=== PATIENT | female | born 1995 | race Caucasian/White ===

== ENCOUNTER → 2017-09-12 | Outpatient (CLI) | payer OTHER ==
--- NOTE | 2017-09-12 10:55 | RADIOLOGY REPORT (SQ) ---
EXAM DESCRIPTION: U/S RETROPERITON (RENAL/AORTA) COMPLETED DATE/TIME: 09/12/2017 9:35 am REASON FOR STUDY: I70.1 ATHEROSCLEROSIS OF RENAL ARTERY I70.1 ATHEROSCLEROSIS OF RENAL ARTERY COMPARISON: None. TECHNIQUE: Dynamic and static grayscale images acquired of the kidneys and bladder and recorded on P ACS. Additional selected color Doppler and spectral images recorded. LIMITATIONS: None. FINDINGS: RIGHT KIDNEY: Normal size. Normal echogenicity. No solid or suspicious masses. Dila jered collecting system within 2 standard deviations. No calcifications. LEFT KIDNEY: Normal size. Normal echogenicity. No solid or suspicious masses. Dilated collecti ng system within 2 standard deviations. No calcifications. BLADDER: No masses. OTHER FINDINGS: heart rate 153. IMPRESSION: Dilated collecting system within normal limits for 15 weeks gestation. COMMENT: The degree of renal pelvicalyceal dilation is within normal limits for the patient's curren t stage of . TECHNICAL DOCUMENTATION: JOB ID: [id number] [employer]- All Rights Reserved
--- NOTE | 2017-09-12 16:07 | RADIOLOGY REPORT (SQ) ---
EXAM DESCRIPTION: U/S LTD DUPLEX ART/NADINE FLOW COMPLETED DATE/TIME: 09/12/2017 9:35 am REASON FOR STUDY: I70.1 I70.1 ATHEROSCLEROSIS OF RENAL ARTERY COMPARISON: None. TECHNIQUE: Realtime and static grayscale images acquired. Selected color Doppler, velocities and spe ctral images recorded. LIMITATIONS: None. FINDINGS: RIGHT KIDNEY: RENAL ARTERY VELOCITIES: 1.46 cm/sec. Segmental artery velocity 0.66 cm/sec. RENAL VEIN: Color doppler flow present, patent. VELOCITY RATIO: 1.2. Normal waveforms. KIDNEY: Normal size. No significant pathology. LEFT KIDNEY: RENAL ARTERY VELOCITIES: 1.09 cm/sec. Segmental artery velocity 0.57 cm/sec. RENAL VEIN: Color doppler flow present, patent. VELOCITY RATIO: 1.3. Normal waveforms. KIDNEY: Normal size. No significant pathology. BLADDER: Normal. OTHER: No other significant finding. IMPRESSION: NO DOPPLER EVIDENCE OF HEMODYNAMICALLY SIGNIFICANT RENAL ARTERY STENOSIS. COMMENT: NORMAL RENAL ARTERY/AORTA VELOCITY RATIO IS LESS THAN OR EQUAL TO 3.5. TECHNICAL DOCUMENTATION: JOB ID: [id number]- All Rights Reserved
== END ==
LOC: RAD 08:14
PROVIDERS: ATTEND Obstetrics & Gynecology Obstetrics
DX: I70.1 Atherosclerosis of renal artery (principal)
CPT/HCPCS: 76770; 93976

== ENCOUNTER 2018-02-06 13:01 | Emergency (ER) | payer MEDICAID ==
[2018-02-06] MEDS ORDERED: TETRACAINE HCL 0.5% OPH SOLN 2 ML OU ONE (14:34)
--- NOTE | 2018-02-06 14:38 | ER Document Report ---
ED Eye Complaint - General Chief Complaint: Eye Problem Stated Complaint: LACERATION TO RIGHT EYE Time Seen by Provider: 02/06/18 14:13 Mode of Arrival: Ambulatory Information source: Patient TRAVEL OUTSIDE OF THE [place] IN LAST 30 DAYS: No - HPI Patient complains to provider of: RIGHT EYE PAIN Onset: Yesterday Eye location: Right Injury: No Notes: Patient is here with complaints of right eye pain. The patient is a contact wearer. She states that last night she felt like her eye was getting irritated and she took her contact out. She thinks she may have a scratch on her cornea. States that the pain is progressively gotten worse. She complains of redness to her eye. No drainage but increased hearing. She denies any lost vision. She states that she cannot determine if her vision is more blurry than normal, as she is not able to wear her contacts. She denies any traumatic injury. She denies fever. She denies any redness or swelling or tenderness around the eye. She does complain of photophobia. No rash. No nausea, vomiting, diarrhea. Nothing seems to make the pain better. She denies any other complaints at this time. - Related Data Allergies/Adverse Reactions: No Known Allergies Allergy (Verified 10/10/15 22:35) Past Medical History - Social History Smoking Status: Never Smoker Chew tobacco use (# tins/day): No Frequency of alcohol use: None Drug Abuse: None Family History: Reviewed & Not Pertinent Patient has suicidal ideation: No Patient has homicidal ideation: No Pulmonary Medical History: Reports: Hx Asthma Renal/ Medical History: Reports: Hx Kidney Stones. Denies: Hx Peritoneal Dialysis GI Medical History: Reports: Hx Gastritis Psychiatric Medical History: Reports: Hx Anxiety Past Surgical History: Reports: Hx Oral Surgery - Immunizations Immunizations up to date: Yes Review of Systems - Review of Systems -: Yes All other systems reviewed and negative Physical Exam - Notes Notes: GENERAL: alert, cooperative, nontoxic, no distress. HEAD: normocephalic, atraumatic EYES: Right conjunctival injection. Pupils are equal and round react to light bilaterally. Extraocular muscles are intact bilaterally Patient has a visualized deficit consistent with an ulceration to the cornea of the right eye at approximately 1:00. With the eye stained, patient is noted to have an ulceration in this area. No dendritic lesions. Negative Bismark sign. There is no hyphema. EARS: no external swelling, no external redness. Canals are clear bilaterally. TMs pearly orellana without erythema or perforation. NOSE: atraumatic, no external swelling MOUTH/THROAT: mucous membranes moist and pink NECK: soft, supple, full range of motion, no meningismus. CHEST: no distress, lungs clear and equal throughout. No wheezing, rales, rhonchi. CARDIAC: regular rate and rhythm, no murmur, normal capillary refill, normal pulses. BACK: full range of motion, no CVA tenderness. EXTREMITIES: full range of motion of all extremities. No redness, no swelling. NEURO: alert and oriented 3, no focal deficits, full range of motion of all extremities. PYSCH: appropriate mood, affect. Patient is cooperative. SKIN: pink, warm, dry, no rash. - HEENT Visual acuity- Right eye: 20/100 Visual acuity- Left eye: 20/100 Visual acuity- Both eyes: 20/100 Corrective lenses worn: No Course - Re-evaluation Re-evalutation: 02/06/18 15:33 Patient is nontoxic appearing with stable vitals. She is a contact wearer. He started having some right eye redness and irritation a few days ago and now has worsening pain. She is now having some photophobia as well. On exam she has some conjunctival injection and has an abrasion/superficial ulceration to the cornea at approximately 1:00. No periorbital cellulitis. Remainder of her exam is unremarkable. At this point the patient will be discharged home with a prescription for Ciloxan eyedrops as well as Cyclogyl. She will be given a referral to ophthalmology with instructions to follow-up with ophthalmology at the next available appointment. She is instructed to not wear her contacts until she is cleared to wear them by ophthalmology. She should follow-up sooner for worsening pain, fever, redness or swelling around the outside of the eye, lost vision, or for any further concerns. There is no dendritic lesions noted on exam. The patient is noted to have elevated blood pressure during today's emergency department visit. The patient was informed of this finding. The patient was instructed that this may be related to pre-hypertension and requires further evaluation with a primary care provider. The patient has no hypertensive symptoms at this time. The patient's emergency department workup and current diagnosis were explained to the patient and or family. Follow-up instructions were provided. Medications if prescribed were discussed. Instructions for when to return to the emergency department including specific worrisome symptoms were discussed with the patient and/or family. Discharge - Discharge Clinical Impression: Corneal ulcer, right, Iritis Condition: Stable Disposition: HOME, SELF-CARE Instructions: Antibiotic Therapy ([facility]), Eyedrop Use ([facility]), Iritis ([facility]), Corneal Ulceration ([facility]), Corneal Abrasion ([facility]) Additional Instructions: Take medications as prescribed. Using antibiotic eyedrop every hour while awake for the first 2 days. And use as directed. Follow-up with ophthalmology at the next available appointment. Follow-up sooner for worsening pain, fever, redness or swelling around the outside the eye, lost vision, or for any further concerns. Your blood pressure was elevated during today's visit. Have this rechecked with your doctor. Prescriptions: Ciprofloxacin HCl [Ciloxan 0.3% Oph Soln 2.5 ml] 1 drop OP Q4H 7 Days #1 bottle Cyclopentolate HCl [Cyclogyl 1% Drops] 2 drop OP ONCE PRN #1 bottle PRN Reason: Forms: Elevated Blood Pressure, Smoking Cessation Education Referrals: CHICHO HAGAN DO [ACTIVE STAFF] - Follow up as needed
[2018-02-06 15:59] VITALS: BP 129/82
== END 2018-02-06 15:59 | disposition home or self-care (01) ==
LOC: ER 13:01
DX: H16.001 Unspecified corneal ulcer, right eye (principal); H20.9 Unspecified iridocyclitis; R03.0 Elevated blood-pressure reading, without diagnosis of hypertension; Z87.442 Personal history of urinary calculi
CPT/HCPCS: 99283; J3490